=== PATIENT | male | born 1965 | race Caucasian/White ===

== ENCOUNTER 2025-10-10 20:04 | Emergency (ER) | payer OTHER, SELFPAY ==
[2025-10-10 20:05] VITALS: BP 144/82; PULSE 102; RESP 18; TEMP 36.6; O2SAT 98; BMI 24.3
--- NOTE | 2025-10-10 20:08 | ED_ITS ---
HPI - General Adult General Chief complaint: Wound/Laceration Stated complaint: injury to forehead, bleeding Related Data Allergies Allergy/AdvReac Type Severity Reaction Status Date / Time No Known Allergies Allergy Verified 10/10/25 20:07 [facility] Social History Social History Advance Directives: No Advance Directives Information Provided: No Do you have a plan to hurt others: No Plan Physical Exam ED Vital Signs: Vital Signs - 24 hr 10/10/25 20:05 Temperature 98 F Pulse Rate 102 H Respiratory Rate 18 Blood Pressure 144/82 H Pulse Oximetry 98 Oxygen Delivery Method Room Air BMI result Body Mass Index 24.3 Course Course Course Narrative: Rapid medical examination performed in triage by Frances Childress PA-C: Patient is a 60 year old male presenting to the emergency department with a forehead laceration. Patient states that he was chopping wood around 5pm when a piece flew up and caught him in the forehead. Patient denies any anti- coagulation medication or loss of consciousness with the incident. Detailed physical exam and review of systems are deferred to the press shop supervisor. Patient placed back in the waiting room pending room availability. Patient left the department without completing treatment. Patient left the department before myself or any of the other emergency department clinicians could explain to or review with the patient; physical exam findings, need or lack there of for additional testing, need or lack there of for a procedure to be performed, need or lack there of for hospital admission / transfer, need or lack there of for prescription medication, treatment options, or a treatment plan. Patient's limited physical exam performed in triage showed a non-toxic individual with appropriate breathing, alert and oriented, and ambulating without assistance with a 2.5-3cm laceration to the center of his forehead. Discharge Plan Discharge Clinical Impression: Laceration Patient Disposition: Left W/O Completing Treatment Discharge Date/Time: 10/10/25 21:24
--- OUTSIDE RECORDS SUMMARY | 2025-10-10 21:24 | XMS_ITS | Clinical Summary ---
Author Organization [facility] Address [address] [place] [phone] Phone Care Team Providers Care Negative Assembler Name Role Phone Ervin Hernandez MD Primary Care Provider [phone] Allergies No known active allergies Medications sertraline (ZOLOFT) 25 MG tablet Take 25 mg by mouth daily. Active amLODIPine-benaz epril (LOTREL 5-20) 5-20 mg per capsule Take by mouth daily. Active Active Problems No known active problems Social History Tobacco Use Types Packs/Day Years Used Date Smoking Tobacco: Never Assessed Education Answer Date Recorded Are you interested in more education? Not on jericho e 02/11/2023 Are you concerned about learning? Not on file 02/11/2023 No 02/11/2023 No 02/11/2023 Digital Access Answer Date Recorded No 03/12/2023 No 03/12/2023 Reliable internet access at home? Not on file 03/12/2023 Device with a working camera? Not on file Sex and Gender Information Value Date Recorded Sex Assigned at Not on file Legal Sex Male 12:22 PM EDT Gender Identity Not on file Sexual Orientation Not on file Last Filed Vital Signs Vital Sign Reading Time Taken Comments Blood Pressure 124/69 04/12/2025 12:33 PM EDT Pulse 72 04/12/2025 12:33 PM EDT Temperature 35.9 C (96.6 F) 04/12/2025 12:33 PM EDT Respiratory Rate 20 04/12/2025 12:33 PM EDT Oxygen Saturation 99% 04/12/2025 12:33 PM EDT Inhaled Oxygen Concentration - - Weight 72.6 kg (160 lb) 04/12/2025 12:33 PM EDT Height 172.7 cm (5' 8 ) 04/12/2025 12:33 PM EDT Body Mass Index 24.33 04/12/2025 12:33 PM EDT Plan of Treatment Health Maintenance Due Date Last Done Comments CREATININE LEVEL 1966 LIPID PANEL 1966 POTASSIUM LEVEL 1966 DEPRESSION SCREENING 1978 SMOKING Hx and SMOKELESS TOBACCO SCREENING 1979 HEPATITIS C SCREENING 01/13/1984 HIV ONE-TIME SCREENING (18-65 YEARS) 01/13/1984 COLONOSCOPY 2011 FIT TEST 2011 FOBT 2011 SIGMOIDOSCOPY 2011 VIRTUAL COLONOSCOPY 2011 PNEUMOCOCCAL VACCINES (50+ years) (1 of 1 - PCV) 01/13/2016 ZOSTER VACCINES (1 of 2) 01/13/2016 INFLUENZA VACCINE (#1) 2025 08/09/2021 COVID-19 VACCINE ( - season) 2025 08/20/2022, 10/04/2021, 03/04/2021, Additional history exists COLOGUARD 05/20/2026 05/20/2023 COLORECTAL CANCER SCREENING 05/20/2026 Adult Td,Tdap Booster 12/15/2029 12/16/2019 RSV VACCINE (1 - 1-dose 75+ series) 2041 HEPATITIS A VACCINES Aged Out No long er eligible based on patient's age to complete this topic HIB VACCINES Aged Out No longer eligi ble based on patient's age to complete this topic MENINGOCOCCAL VACCINES (ACWY) Aged Out No longer eligible based on patient's age to complete this topic MENINGOCOCCAL VACCINES (B) Aged Out N o longer eligible based on patient's age to complete this topic Medical Devices Not on file Insurance [facility] POS EPO [employer] POS Member Subscriber Plan / Payer (Ef fective 2022-) Name:Anton Torres Relation to Subscriber:Self Name:Anton Torres Payer ID:[id number] (NA) Type:POS Address: [address] POS EPO [place] POS POS EPO [place] POS Member Subscriber Plan / Payer (Ef fective 2022-) Name:Anton Torres Relation to Subscriber:Self Name:Anton Torres Payer ID:[id number] (NA) Type:POS Address: [address] POS EPO [place] POS Member Subscriber Plan / Payer (Ef fective 2022-Present) Name:Anton Torres Relation to Subscriber:Self Name:Anton Torres Payer ID:[id number] (NAIC) Type:POS Address: [facility] [id number] POS EPO [place] POS O POS EPO Care Teams Negative Assembler Relationship Specialty Start Date End Date Ervin Hernandez MD [address] [place] [id number] PCP - General Internal Medicine 02/11/23 Additional Source Comments The information contained in this document represents components of the legal health record. It is not the complete legal health record.[facility]
== END 2025-10-10 21:24 | disposition left against medical advice (07) ==
PROVIDERS: Emergency Provider Emergency Medicine; PCP Internal Medicine
DX: S01.81XA Laceration without foreign body of other part of head, initial encounter (principal); W20.8XXA Other cause of strike by thrown, projected or falling object, initial encounter; Y93.L1 Activity, splitting wood; Y92.9 Unspecified place or not applicable; Z53.29 Procedure and treatment not carried out because of patient's decision for other reasons
CPT/HCPCS: 99281